=== PATIENT | female | born 1990 | race Caucasian/White ===

== ENCOUNTER → 2016-02-29 | Outpatient (CLI) | payer OTHER ==
[~2016-02-29] MED LIST: ACET50TA PO; CONRAY-43 43% 50ML VIAL (Q9960) As Ordered ONE; IBUP60TA PO; PRENTAB31 PO; TYLE167L PO
--- NOTE | 2016-02-29 14:30 | REP ---
Right hip arthrogram The procedure was performed under the direction supervision of Dr. Espinoza. The benefits and risks including but not limited to pain, infection, bleeding and anaphylaxis were explained to the patient and informed consent was obtained. The right femoral neck was localized using fluoroscopic guidance. The skin was prepped and draped in a sterile fashion. 1% lidocaine was used as a local anesthetic. Using fluoroscopic guidance a 22 gauge spinal needle was inserted and advanced to the femoral neck. 0.5 ml of Conray 43 was injected to verify placement. 11 ml of a solution containing 20 ml of sterile saline and 0.15 ml of ProHance was injected into the joint. The needle was removed and the patient was taken to MRI for postprocedural imaging. The the patient tolerated the procedure well and there were no immediate complications. 1 second of fluoro time was utilized for this procedure. Reviewed by MABEL Harper 02/29/2016 02:13 PSigned by Gerardo Espinoza MD 02/29/2016 02:21 P
--- NOTE | 2016-02-29 16:16 | REP ---
MR arthrogram right hip: History: Bilateral hip pain. Question intra-articular pathology. Comparison studies: No comparison imaging. Technique: Precontrast imaging includes coronal T1 and T2-weighted scans of both hips. Postcontrast small field of view high resolution axial, coronal and sagittal images are acquired in T1 and T2-weighted scans with fat saturation. MR arthrographic findings: Pre injection MR imaging shows cortical and medullary bone signal intensity is normal in the proximal femurs bilaterally. There is no evidence of hip joint effusion. No periarticular bursal fluid collection is seen on either side. Cortical and medullary bone signal intensity is normal in the bony pelvic ring as visualized. Post injection imaging shows good filling and enhancement of the right hip articulation. The ligamentum teres is intact. No loose body is seen. Head and neck junction morphology is normal. No labral tear is seen. Exam is otherwise unremarkable. No uterine or ovarian abnormality is seen. Impression: Negative MR arthrography right hip. Signed by Gerardo Espinoza MD 02/29/2016 04:26 P
== END | disposition home or self-care (01) ==
LOC: M RADPRO 09:47
PROVIDERS: ATTEND Physician Assistant Medical
DX: M25.551 Pain in right hip (principal); M25.552 Pain in left hip
CPT/HCPCS: 27093; 73723; 77002; A9576; Q9960

== ENCOUNTER → 2017-06-22 | Outpatient (REF) | payer OTHER | LOC: M LAB REF 13:38 | DX: Z34.83 Encounter for supervision of other normal pregnancy, third trimester (principal) | CPT/HCPCS: 87086 ==

== ENCOUNTER 2017-07-03 10:06 | Inpatient (IN) | payer SELFPAY, OTHER ==
[2017-07-03] MEDS ORDERED: LR 1,000 ML IV (10:30)
[2017-07-03 11:24] LABS: HEMATOCRIT 35.6 % (36.0-47.0); MEAN CORPUSCULAR HEMOGLOBIN 24.2 pg (27.0-33.0); MEAN CORPUSCULAR HGB CONC 30.9 g/dl (32.0-36.5); MEAN CORPUSCULAR VOLUME 78.2 fl (80.0-96.0); PLATELET COUNT, AUTOMATED 123 10^3/uL (150-450); RED BLOOD COUNT 4.55 10^6/uL (4.00-5.40); RED CELL DISTRIBUTION WIDTH 16.9 % (11.5-14.5); WHITE BLOOD COUNT 7.8 10^3/uL (4.0-10.0)
[2017-07-03 11:51] LABS: ALT/SGPT 13 U/L (12-78); AST/SGOT 14 U/L (7-37); BILIRUBIN,TOTAL 0.4 MG/DL (0.2-1.0); CREATININE FOR GFR 0.58 MG/DL (0.55-1.30); GLOMERULAR FILTRATION RATE > 60.0 (>60); LDH LACTATE DEHYDROGENASE 185 U/L (84-246); URIC ACID 4.5 MG/DL (2.6-6.0)
[2017-07-03] MEDS ORDERED: OXYTOCIN 30 UNITS IN 0.9% NaCl 500ML IV BAG (J2590) As Ordered (14:04)
[2017-07-03] MEDS: OXYTOCIN DRIP 30 UNITS in APPROPRIATE DILUENT 1 EA IV (16:23)
[2017-07-03 17:04] LABS: CORD GAS ABE V -1.6; CORD GAS HCO3 V 21.5 MEQ/L; CORD GAS O2 SAT V 76.1 %; CORD GAS PCO2 V 32.8 mmHg; CORD GAS PH V 7.434 UNITS; CORD GAS PO2 V 30.8 mmHg; CORD GAS SBC V 22.5 MEQ/L; CORD GAS TCO2 V 22.5 MEQ/L
[2017-07-03 17:06] LABS: CORD GAS ABE A 1.1; CORD GAS HCO3 A 26.4 MEQ/L; CORD GAS O2 SAT A 40.9 %; CORD GAS PCO2 A 44.1 mmHg; CORD GAS PH A 7.395 UNITS; CORD GAS PO2 A 14.1 mmHg; CORD GAS SBC A 23.8 MEQ/L; CORD GAS TCO2 A 27.8 MEQ/L
[2017-07-03] MEDS ORDERED: DIBUCAINE 1% OINTMENT 30GM TOP (18:00)
[2017-07-03] MEDS ORDERED: DOCUSATE SODIUM 100 MG CAP PO (18:00)
[2017-07-03] MEDS ORDERED: METHYLERGONOVINE MALEATE 0.2 MG TAB PO (18:00)
[2017-07-03] MEDS: IBUPROFEN 800 MG TAB PO (18:16)
[2017-07-03] MEDS: ACETAMINOPHEN 500 MG TAB PO (22:52)
[2017-07-04] MEDS: IBUPROFEN 800 MG TAB PO ×2 (04:58→12:50)
[2017-07-04] MEDS: PRENATAL VITAMINS CHEWABLE TABLET PO (09:36)
[2017-07-04] MEDS: ACETAMINOPHEN 500 MG TAB PO (19:20)
[2017-07-05] MEDS: ACETAMINOPHEN 500 MG TAB PO (03:50)
[2017-07-05] MEDS: MEASLES,MUMPS,RUBELLA VACCINE INJ (MMR-II) (90707) SC (07:32)
[2017-07-05] MEDS: RHOGAM 300 MCG (1500 IU) INJ (J2790) IM (07:32)
[2017-07-05] MEDS: PRENATAL VITAMINS CHEWABLE TABLET PO (08:42)
[2017-07-05] MEDS: IBUPROFEN 800 MG TAB PO (10:31)
== END 2017-07-05 17:09 | disposition home or self-care (01) | DRG 560 ==
LOC: M LDI 10:06 → M OBS 18:58
PROC: 10E0XZZ Delivery of Products of Conception, External Approach (ICD-10-PCS; principal; 2017-07-03)
PROC: 10907ZC Drainage of Amniotic Fluid, Therapeutic from Products of Conception, Via Natural or Artificial Opening (ICD-10-PCS; 2017-07-03)
PROC: 0HQ9XZZ Repair Perineum Skin, External Approach (ICD-10-PCS; 2017-07-03)
DX: O69.1XX0 Labor and delivery complicated by cord around neck, with compression, not applicable or unspecified (principal); O70.0 First degree perineal laceration during delivery; Z3A.38 38 weeks gestation of pregnancy; Z37.0 Single live birth